=== PATIENT | male | born 1990 | race Hispanic/Latino ===

== ENCOUNTER 2022-04-30 18:45 | Emergency (ER) | payer SELFPAY ==
[~2022-04-30] VITALS: Ht 160 cm; Wt 85.7 kg
[2022-04-30] MEDS ORDERED: ACETAMINOPHEN 325 MG TAB PO ONE (19:15)
== END 2022-04-30 21:28 | disposition home or self-care (01) ==
LOC: ER 19:06
DX: R51.9 Headache, unspecified (principal); H43.393 Other vitreous opacities, bilateral
CPT/HCPCS: 70450; 99283